=== PATIENT | female | born 1975 | race Hispanic/Latino ===

== ENCOUNTER 2022-06-08 07:05 | Day surgery (SDC) | payer BC ==
[~2022-06-08] VITALS: Ht 154.9 cm; Wt 83.9 kg
[~2022-06-08 07:05] MED LIST: ALLEGRA ALLERGY60 MG PO; ASPIRIN81 MG PO; B121000 MCG PO; DEXAMETHASONE 0.1% IO; ESCITALOPRAM OX10 MG PO; JARDIANCE10 MG PO; LEVOTHYROXIN50 MCG PO; LORATADINE10 M1 PO; METFORMIN HCL1000 MG PO; PRAVASTATIN40 MG PO; TRESIBA FL200 UNIT/M IJ; TRULICITY3 MG/0.5 M IJ
[2022-06-08 09:26] VITALS: BP 98/71
== END 2022-06-08 09:31 | disposition home or self-care (01) | DRG 951 ==
LOC: ENDO 07:05
PROVIDERS: ATTEND Internal Medicine Gastroenterology
PROC: 0DBK8ZX Excision of Ascending Colon, Via Natural or Artificial Opening Endoscopic, Diagnostic (ICD-10-PCS; principal; 2022-06-08)
DX: Z12.11 Encounter for screening for malignant neoplasm of colon (principal); K63.5 Polyp of colon; K64.8 Other hemorrhoids